=== PATIENT | female | born 1970 | race Caucasian/White ===

== ENCOUNTER 2021-02-17 11:32 | Emergency (ER) | payer BC | END 2021-02-17 13:55 | disposition home or self-care (01) | LOC: CSHERS 11:32 | DX: S93.401A Sprain of unspecified ligament of right ankle, initial encounter (principal); S80.212A Abrasion, left knee, initial encounter; K21.9 Gastro-esophageal reflux disease without esophagitis; I10 Essential (primary) hypertension; W19.XXXA Unspecified fall, initial encounter; Z79.899 Other long term (current) drug therapy ==